=== PATIENT | female | born 2000 | race Caucasian/White ===

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

== ENCOUNTER 2019-03-26 00:35 | Inpatient (IN) ==
[2019-03-26] MEDS ORDERED: ONDANSETRON 4 MG/2 ML VIAL IV PRN (01:03)
[2019-03-26] MEDS ORDERED: BUTORPHANOL 2 MG/ML VIAL IV PRN (01:03)
[2019-03-26] MEDS ORDERED: ceFAZolin 2,000 MG in PREMIX 1 EACH IV ONE (01:29)
[2019-03-26] MEDS ORDERED: FAMOTIDINE 20 MG/2 ML VIAL IV ONE (01:29)
[2019-03-26] MEDS ORDERED: CITRIC ACID/SODIUM CITRATE 30 ML UDCUP PO ONE (01:29)
[2019-03-26] MEDS ORDERED: LACTATED RINGERS 1,000 ML IV SCH (01:30)
[2019-03-26] MEDS ORDERED: LACTATED RINGERS 1,000 ML IV ONE (01:34)
[2019-03-26] MEDS ORDERED: OXYTOCIN/LR 20 UNIT/1,000 ML BAG IV ONE ×3 (01:37→05:57)
[2019-03-26 01:42] LABS: Basophils % 0.5 % (0.0-0.8); Eosinophils # 0.1 10*3/uL (0.0-0.87); Eosinophils % 1.1 % (0.00-10.9); Hematocrit 30.9 VOL% (35.7-47.0); Hemoglobin 9.5 GM/DL (12.0-16.0); Immature Granulocytes % 0.5 %; Immature Granulocytes Absolute 0.03 #; Lymphocytes # 2.7 10*3/uL (1.4-4.0); Lymphocytes % 41.4 % (21.3-54.2); Mean Corpuscular HGB Conc 30.7 GM/DL (32-36); Mean Corpuscular Volume 73.9 FL (87-102); Mean Platelet Volume 11.1 FL (9.6-12.0); Monocytes % 5.7 % (1.7-12.7); Neutrophils % 50.8 % (38.7-73.9); Platelet Count 195 T/CUMM (130-400); Red Blood Count 4.18 MC/CUMM (3.8-5.5); Red Cell Distribution Width 16.4 % (9.3-17.3); White Blood Count 6.5 T/CUMM (4-12)
[2019-03-26 02:13] LABS: Albumin 2.3 G/DL (3.4-5.0); Bilirubin,Total 0.5 MG/DL (0.2-1.0); Calcium 8.6 MG/DL (8.5-10.1); Osmolality,Calculated 276.4 MOS/KG (273-304); Total Protein 6.5 G/DL (6.4-8.3)
[2019-03-26] MEDS ORDERED: miSOPROStol 200 MCG TABLET ONE (02:22)
[2019-03-26] MEDS ORDERED: TRANEXAMIC ACID 1,000 MG/10 ML VIAL ONE (02:22)
[2019-03-26] MEDS ORDERED: CARBOPROST TROMETHAMINE 250 MCG/ML AMP IM ONE (02:23)
[2019-03-26] MEDS ORDERED: METHYLERGONOVINE 0.2 MG/1 ML AMP ONE (02:23)
[2019-03-26] MEDS ORDERED: ALBUTEROL INHALER 8 GM INH ONE (02:29)
[2019-03-26 02:35] LABS: Apearance,Urine CLEAR (Clear); Bilirubin,Urine Negative (Negative); Blood, Urine Negative (Negative); Glucose,Urine (UA) Negative (Negative); Granular Casts,Urine 4 /LPF (0-1); Hyaline Casts,Urine 1 /LPF (0-3); Ketones,Urine Negative (Negative); Mucus,Urine Occasional /LPF (Occasional); Nitrite,Urine Negative (Negative); Protein,Urine Negative; RBC,Urine 2 /HPF (0-4); Squamous Epithelial Cell,Urine Occasional /HPF (0-10); Urine Color Yellow (Yellow); Urine Specific Gravity 1.018 (1.001-1.035); Urine Urobilinogen < 2.0 EU/DL (0.2-1.0); WBC,Urine 1 /HPF (0-6)
[2019-03-26 03:18] LABS: Cord Venous Blood HCO3 22.7 MMOL/L; Cord Venous Blood PCO2 44.8 MMHG; Cord Venous Blood PO2 34.6
[2019-03-26] MEDS ORDERED: KETOROLAC 30 MG/1 ML VIAL IV SCH (03:30)
[2019-03-26] MEDS ORDERED: PHENYLEPHRINE 1 MG/10 ML SYRINGE IV ONE (03:45)
[2019-03-26] MEDS ORDERED: MIDAZOLAM 2 MG/2 ML VIAL ONE (03:45)
[2019-03-26] MEDS ORDERED: fentaNYL 100 MCG/2 ML VIAL ONE (03:45)
[2019-03-26] MEDS ORDERED: MORPHINE 10 MG/10 ML VIAL ONE (03:46)
[2019-03-26] MEDS ORDERED: BUPIVACAINE SPINAL 0.75% 2 ML AMP SPINAL ONE (03:47)
[2019-03-26] MEDS ORDERED: INFLUENZA VIRUS VACCINE 0.5 ML SYRINGE IM ONE (04:09)
[2019-03-26 04:21] VITALS: BP 109/71
[2019-03-26] MEDS ORDERED: hydrOXYzine HCL 25 MG/1 ML VIAL IM PRN (08:55)
[2019-03-26] MEDS ORDERED: HYDROmorphone 2 MG/1 ML VIAL IV PRN (08:55)
[2019-03-26] MEDS ORDERED: diphenhydrAMINE 50 MG/1 ML VIAL IV PRN (08:55)
[2019-03-26 09:06] LABS: Hepatitis B Surface Ag Quant < 0.10 Index; Hepatitis B Surface Ag Result Negative (Negative)
[2019-03-26 10:10] LABS: HIV Antigen/Antibody Result Nonreactive (Nonreactive); Rubella Antibody IgG 12.1 IU/ML
== END 2019-03-26 12:15 | disposition hospice, home (50) | DRG 788 ==
LOC: N.LDOUT 00:35 → N.LD 00:37
PROVIDERS: ADMIT Obstetrics & Gynecology; ATTEND Obstetrics & Gynecology
PROC: LDCSECT (ICD-10-PCS; 2019-03-26 01:50)

== ENCOUNTER 2020-08-07 09:56 | Inpatient (IN) ==
[2020-08-07] MEDS: LACTATED RINGERS 1,000 ML IV PRN ×2 (10:31→13:37)
[2020-08-07] MEDS ORDERED: FAMOTIDINE 20 MG/2 ML VIAL IV ONE (10:33)
[2020-08-07] MEDS ORDERED: CITRIC ACID/SODIUM CITRATE 30 ML UDCUP PO ONE (10:33)
[2020-08-07] MEDS ORDERED: ceFAZolin 2,000 MG in PREMIX 1 EACH IV ONE (10:33)
[2020-08-07] MEDS ORDERED: OXYTOCIN 10 UNIT/ML VIAL IM ONE (10:35)
[2020-08-07] MEDS ORDERED: OXYTOCIN/LR 30 UNIT/1,000 ML BAG IV ONE (10:35)
[2020-08-07 11:23] LABS: Basophils % 0.2 % (0.0-0.8); Eosinophils # 0.1 10*3/uL (0.0-0.87); Eosinophils % 0.8 % (0.00-10.9); Hematocrit 32.2 VOL% (35.7-47.0); Hemoglobin 9.8 GM/DL (12.0-16.0); Immature Granulocytes Absolute 0.11 #; Lymphocytes # 2.1 10*3/uL (1.4-4.0); Lymphocytes % 19.9 % (21.3-54.2); Mean Corpuscular HGB Conc 30.4 GM/DL (32-36); Mean Corpuscular Volume 71.1 FL (87-102); Mean Platelet Volume 12.1 FL (9.6-12.0); Monocytes % 7.2 % (1.7-12.7); Neutrophils % 70.9 % (38.7-73.9); Platelet Count 210 T/CUMM (130-400); Red Blood Count 4.53 MC/CUMM (3.8-5.5); Red Cell Distribution Width 16.1 % (9.3-17.3); White Blood Count 10.7 T/CUMM (4-12)
[2020-08-07 11:24] LABS: Alanine Aminotransferase 11 U/L (13-56); Albumin 2.6 G/DL (3.4-5.0); Alkaline Phosphatase 176 U/L (45-117); Aspartate Amino Transferase 9 U/L (0-37); Bilirubin,Total < 0.39 MG/DL (0.2-1.0); Blood Urea Nitrogen 8 MG/DL (7-18); Calcium 8.3 MG/DL (8.5-10.1); Carbon Dioxide 19 MMOL/L (21-32); Estimated Glom Filtration Rate 168 ML/MIN; Glucose 83 MG/DL (74-106); Potassium 3.9 MMOL/L (3.5-5.1); Sodium 136 MMOL/L (136-145); Total Protein 7.6 G/DL (6.4-8.3)
[2020-08-07 11:39] LABS: Hypochromasia 1+; Microcytosis 1+; Platelet Estimate Adequate
[2020-08-07] MEDS ORDERED: BUPIVACAINE SPINAL 0.75% 2 ML AMP SPINAL ONE (14:49)
[2020-08-07] MEDS ORDERED: METHYLERGONOVINE 0.2 MG/1 ML AMP ONE (14:59)
[2020-08-07] MEDS ORDERED: PHENYLEPHRINE 1 MG/10 ML SYRINGE IV ONE ×2 (15:24→15:39)
[2020-08-07] MEDS ORDERED: DEXAMETHASONE 4 MG/1 ML VIAL ONE (15:24)
[2020-08-07] MEDS ORDERED: ONDANSETRON 4 MG/2 ML VIAL ONE (15:24)
[2020-08-07] MEDS ORDERED: BUPIVACAINE MPF 0.25% 30 ML VIAL ONE (15:28)
[2020-08-07 15:48] LABS: Cord Venous Blood HCO3 22.9 MMOL/L; Cord Venous Blood PCO2 36.6 MMHG
[2020-08-07 15:52] LABS: Cord Arterial Blood HCO3 25.4 MMOL/L
[2020-08-07] MEDS ORDERED: RHO(D) IMMUNE GLOBULIN 300 MCG SYRINGE IM ONE (15:56)
[2020-08-07] MEDS ORDERED: ACETAMINOPHEN 325 MG TABLET PO PRN (15:56)
[2020-08-07] MEDS ORDERED: OXYTOCIN/LR 20 UNIT/1,000 ML BAG IV ONE (15:56)
[2020-08-07] MEDS ORDERED: SIMETHICONE CHEW 80 MG TABLET PO PRN (15:56)
[2020-08-07] MEDS ORDERED: MAGNESIUM HYDROXIDE SUSP 30 ML UDCUP PO PRN (15:56)
[2020-08-07] MEDS ORDERED: ONDANSETRON 4 MG/2 ML VIAL IV PRN (15:56)
[2020-08-07] MEDS ORDERED: LACTATED RINGERS 1,000 ML IV SCH (16:00)
[2020-08-07] MEDS ORDERED: ACETAMINOPHEN 500 MG TABLET PO PRN (18:04)
[2020-08-07] MEDS ORDERED: KETOROLAC 30 MG/1 ML VIAL IV PRN (18:07)
[2020-08-07 18:13] LABS: Bilirubin,Urine Negative (Negative); Blood, Urine Negative (Negative); Glucose,Urine (UA) Negative (Negative); Ketones,Urine 20 mg/dL (Negative); Mucus,Urine Occasional /LPF (Occasional); Nitrite,Urine Negative (Negative); Protein,Urine Negative; RBC,Urine 1 /HPF (0-4); Squamous Epithelial Cell,Urine Occasional /HPF (0-10); Urine Appearance CLEAR (Clear); Urine Color Yellow (Yellow); Urine Specific Gravity 1.018 (1.001-1.035); Urine Urobilinogen < 2.0 EU/DL (0.2-1.0)
[2020-08-07] MEDS: DOCUSATE SODIUM 100 MG CAPSULE PO SCH (20:58)
[2020-08-07 22:57] LABS: Basophils % 0.1 % (0.0-0.8); Hematocrit 28.5 VOL% (35.7-47.0); Hemoglobin 8.8 GM/DL (12.0-16.0); Immature Granulocytes % 0.6 %; Immature Granulocytes Absolute 0.09 #; Lymphocytes # 1.2 10*3/uL (1.4-4.0); Lymphocytes % 8.4 % (21.3-54.2); Mean Corpuscular HGB Conc 30.9 GM/DL (32-36); Mean Corpuscular Volume 70.2 FL (87-102); Mean Platelet Volume 12.5 FL (9.6-12.0); Neutrophils % 89.9 % (38.7-73.9); Platelet Count 187 T/CUMM (130-400); Red Blood Count 4.06 MC/CUMM (3.8-5.5); Red Cell Distribution Width 15.8 % (9.3-17.3); White Blood Count 14.7 T/CUMM (4-12)
[2020-08-07] MEDS: IBUPROFEN 800 MG TABLET PO PRN (23:15)
[2020-08-08 07:10] LABS: Basophils % 0.1 % (0.0-0.8); Hematocrit 27.8 VOL% (35.7-47.0); Hemoglobin 8.2 GM/DL (12.0-16.0); Immature Granulocytes % 0.8 %; Immature Granulocytes Absolute 0.12 #; Lymphocytes # 1.8 10*3/uL (1.4-4.0); Lymphocytes % 11.8 % (21.3-54.2); Mean Corpuscular HGB Conc 29.5 GM/DL (32-36); Mean Corpuscular Volume 71.6 FL (87-102); Mean Platelet Volume 11.4 FL (9.6-12.0); Monocytes % 4.9 % (1.7-12.7); Neutrophils % 82.4 % (38.7-73.9); Red Blood Count 3.88 MC/CUMM (3.8-5.5); Red Cell Distribution Width 15.9 % (9.3-17.3); White Blood Count 15.2 T/CUMM (4-12)
[2020-08-08 07:11] LABS: Platelet Count 248 T/CUMM (130-400)
[2020-08-08] MEDS: MULTIVITAMIN (PRENATAL) TABLET PO SCH (08:04)
[2020-08-08] MEDS: METOCLOPRAMIDE 10 MG TABLET PO SCH ×2 (08:04→17:58)
[2020-08-08] MEDS: DOCUSATE SODIUM 100 MG CAPSULE PO SCH ×2 (08:04→21:45)
[2020-08-08] MEDS: IBUPROFEN 800 MG TABLET PO PRN ×2 (08:04→17:58)
[2020-08-09] MEDS: METOCLOPRAMIDE 10 MG TABLET PO SCH ×2 (03:58→10:12)
[2020-08-09] MEDS: IBUPROFEN 800 MG TABLET PO PRN (03:58)
[2020-08-09] MEDS ORDERED: CALCIUM CARBONATE CHEW 500 MG TABLET PO PRN (05:45)
[2020-08-09 07:17] VITALS: BP 106/57
[2020-08-09] MEDS: DOCUSATE SODIUM 100 MG CAPSULE PO SCH (10:12)
[2020-08-09] MEDS: MULTIVITAMIN (PRENATAL) TABLET PO SCH (10:12)
== END 2020-08-09 14:20 | disposition home or self-care (01) | DRG 540 ==
LOC: N.LD 09:56 → N.OB 19:50
PROVIDERS: ADMIT Obstetrics & Gynecology; ATTEND Obstetrics & Gynecology
PROC: LDCSECT (ICD-10-PCS; 2020-08-07 14:00)